=== PATIENT | female | born 1945 | race Caucasian/White ===

== ENCOUNTER → 2016-05-26 | Outpatient (CLI) | payer MEDICARE, OTHER ==
[~2016-05-26] MED LIST: CARDI-OMEGA1000 MG PO; COLACE 100100 MG/CAP PO; FENTANYL 50MCG TD; FOLPLEX PO; GNC NIACIN 250250 MG PO; HYDROCHLOR50 MG PO; HYDROCHLOROTHIA50 M1 PO; KLOR-CON 1010 MEQ PO; LISINOPRIL20 MG PO; LOVASTATIN10 MG PO; MIRALAX17 GM PO; NIACIN50 MG PO; NIACIN500 M5 PO; NORCO 325 MG-7.1 TA1 PO; OXYCODONE; ST. JOSEPH81 M2 PO
== END ==
LOC: LAB 09:50
DX: I10 Essential (primary) hypertension (principal); E78.2 Mixed hyperlipidemia

== ENCOUNTER → 2016-12-25 | Outpatient (CLI) | payer MEDICARE, OTHER ==
[2016-01-20 11:19] VITALS: BP 106/50
== END ==
LOC: RAD 11:23
DX: R10.84 Generalized abdominal pain (principal); R10.9 Unspecified abdominal pain; K59.00 Constipation, unspecified; M54.6 Pain in thoracic spine

== ENCOUNTER → 2017-01-02 | Outpatient (CLI) | payer MEDICARE, OTHER ==
[2016-01-20 11:19] VITALS: BP 106/50
== END ==
LOC: LAB 10:25
DX: E87.6 Hypokalemia (principal)

== ENCOUNTER → 2017-01-09 | Outpatient (CLI) | payer MEDICARE, OTHER ==
[2016-01-20 11:19] VITALS: BP 106/50
== END ==
LOC: LAB 10:28
DX: E87.6 Hypokalemia (principal); R10.84 Generalized abdominal pain; K59.00 Constipation, unspecified; M54.6 Pain in thoracic spine; N30.01 Acute cystitis with hematuria

== ENCOUNTER → 2017-05-28 | Outpatient (CLI) | payer MEDICARE, OTHER ==
[~2017-05-28] VITALS: Ht 160 cm; Wt 45.5 kg
[~2017-05-28] MED LIST changes: +FLUOCINOLONE ACETONIDE 0.025% TOP; +GOOD NEIGH1200 MG/15 PO; +LOVASTATIN10 M1 PO; -LOVASTATIN10 MG PO; -NIACIN500 M5 PO; +PLAIN NIACIN250 MG PO
[2017-05-28 10:52] VITALS: BP 132/73
== END ==
LOC: AMSURD 10:44
DX: I49.9 Cardiac arrhythmia, unspecified (principal); I10 Essential (primary) hypertension